=== PATIENT | male | born 1970 | race Caucasian/White ===

== ENCOUNTER 2024-05-21 20:09 | Emergency (ER) | payer BC ==
[2024-05-21 20:24] VITALS: RESP 18
--- NOTE | 2024-05-21 20:49 | ED ---
Fall HPI - General Chief Complaint: Fall Stated Complaint: Fall-Rib Injury Time Seen by Provider: 05/21/24 20:18 Source: patient, RN notes reviewed Mode of arrival: ambulatory - History of Present Illness Initial Comments: This is a 53-year-old male complaining of right rib pain following a trip and fall onto the edge of a kitchen counter x 5 days ago. Patient states he fell b ackwards, striking his right ribs into the counter with subsequent pain (/10) that worsens with inhalation. Patient denies other injuries, striking head, headache, neck pain, dyspnea, hemoptysis. MD Complaint: fall Onset/Timin -: days(s) Fall From: standing Fall Witnessed: yes, by family Place Fall Occurred: home Loss of Consciousness: none Prolonged Down Time?: no Symptoms Prior to Fall: none Location: back Severity scale (1-10): 8 Quality: sharp Context: tripped/slipped Associated Symptoms: denies - Related Data Allergies Allergy/AdvReac Type Severity Reaction Status Date / Time No Known Allergies Allergy Verified 05/21/24 20:18 Review of Systems ROS Statement: Those systems with pertinent positive or pertinent negative responses have been documented in the HPI. ROS Other: All systems not noted in ROS Statement are negative. Past Medical History Past Medical History: No Reported History History of Any Multi-Drug Resistant Organisms: None Reported Past Surgical History: Joint Replacement, Orthopedic Surgery Additional Past Surgical History / Comment(s): Bilat shoulders, R knee Past Psychological History: No Psychological Hx Reported Smoking Status: Never smoker Past Alcohol Use History: Rare Past Drug Use History: None Reported General Exam Limitations: no limitations General appearance: alert, in no apparent distress Head exam: Present: atraumatic, normocephalic, normal inspection Eye exam: Present: normal appearance, PERRL, EOMI. Absent: scleral icterus, conjunctival injection, periorbital swelling ENT exam: Present: normal exam, mucous membranes moist Neck exam: Present: normal inspection. Absent: tenderness, meningismus, lymphadenopathy Respiratory exam: Present: normal lung sounds bilaterally, chest wall tenderness (Positive crepitus and tenderness of right dorsal 10th and 11th ribs without overlying ecchymosis). Absent: respiratory distress, wheezes, rales, rhonchi, stridor, accessory muscle use, decreased breath sounds, prolonged expiratory Cardiovascular Exam: Present: regular rate, normal rhythm, normal heart sounds. Absent: systolic murmur, diastolic murmur, rubs, gallop, clicks GI/Abdominal exam: Present: soft, normal bowel sounds. Absent: distended, tenderness, guarding, rebound, rigid Extremities exam: Present: normal inspection, full ROM, normal capillary refill. Absent: tenderness, pedal edema, joint swelling, calf tenderness Back exam: Present: normal inspection Neurological exam: Present: alert, oriented X3, CN II-XII intact Psychiatric exam: Present: normal affect, normal mood Skin exam: Present: warm, dry, intact, normal color. Absent: rash Course Vital Signs 05/21/24 05/21/24 20:19 22:21 Temperature 98.7 F 98.2 F Pulse Rate 51 L 62 Respiratory 18 18 Rate Blood Pressure 191/117 174/97 O2 Sat by Pulse 98 Oximetry Medical Decision Making - Medical Decision Making Was pt. sent in by a medical professional or institution (, PA, OTOLARYNGOLOGY TEACHER, urgent care, hospital, or care home...) When possible be specific @ -No Did you speak to anyone other than the patient for history (EMS, parent, family, police, friend...)? What history was obtained from this source @ -No Did you review nursing and triage notes (agree or disagree)? Why? @ -I reviewed and agree with nursing and triage notes Were old charts reviewed (outside hosp., previous admission, EMS record, old EKG, old radiological studies, urgent care reports/EKG's, care home records)? Report findings @ -No old charts were reviewed Differential Diagnosis (chest pain, altered mental status, abdominal pain women, abdominal pain men, vaginal bleeding, weakness, fever, dyspnea, syncope, headache, dizziness, GI bleed, back pain, seizure, CVA, palpatations, mental health, musculoskeletal)? @ -Differential Musculoskeletal Muscular strain, contusion, ligament sprain, fracture, arthritis, septic arthritis, bursitis, cellulitis, muscle spasm, nerve compression, DVT, arterial occlusion, herpes zoster, electrolyte abnormality, tumor.... This is not meant to be in all inclusive list EKG interpreted by me (3pts min.). @ -Not done X-rays interpreted by me (1pt min.). @ -Right rib x-ray shows mildly displaced posterior right 10th and 11th rib fractures with trace right pleural effusion and no evidence of pneumothorax or subcutaneous emphysema. CT interpreted by me (1pt min.). @ -None done U/S interpreted by me (1pt. min.). @ -None done What testing was considered but not performed or refused? (CT, X-rays, U/S, labs)? Why? @ -None What meds were considered but not given or refused? Why? @ -None Did you discuss the management of the patient with other professionals (professionals i.e. DrMily, PA, OTOLARYNGOLOGY TEACHER, lab, RT, psych nurse, renal social worker, hat finisher, teacher, customs and immigration officer, porter sample case)? Give summary @ -No Was smoking cessation discussed for >3mins.? @ -No Was critical care preformed (if so, how long)? @ -No Were there social determinants of health that impacted care today? How? (Homelessness, low income, unemployed, alcoholism, drug addiction, transportation, low edu. Level, literacy, decrease access to med. care, shelter, rehab)? @ -No Was there de-escalation of care discussed even if they declined (Discuss DNR or withdrawal of care, Hospice)? DNR status @ -No What co-morbidities impacted this encounter? (DM, HTN, Smoking, COPD, CAD, Cancer, CVA, ARF, Chemo, Hep., AIDS, mental health diagnosis, sleep apnea, morbid obesity)? @ -None Was patient admitted / discharged? Hospital course, mention meds given and route, prescriptions, significant lab abnormalities, going to OR and other pertinent info. @ -Right rib x-ray shows mildly displaced posterior right 10th and 11th rib fractures with trace right pleural effusion and no evidence of pneumothorax or subcutaneous emphysema. Patient provided IM Dilaudid for pain with some relief noted by patient. Patient provided incentive spirometer and discharged with T3 starter pack. Advised follow-up with PCP in the next 24-48 [address] patient with Dr. Ruelas. Undiagnosed new problem with uncertain prognosis? @ -No Drug Therapy requiring intensive monitoring for toxicity (Heparin, Nitro, Insulin, Cardizem)? @ -No Were any procedures done? @ -No Diagnosis/symptom? @ -Rib fracture Acute, or Chronic, or Acute on Chronic? @ -Acute Uncomplicated (without systemic symptoms) or Complicated (systemic symptoms)? @ -Uncomplicated Side effects of treatment? @ -No Exacerbation, Progression, or Severe Exacerbation? @ -No Poses a threat to life or bodily function? How? (Chest pain, [place], [place], pneumonia, PE, COPD, DKA, ARF, appy, cholecystitis, CVA, Diverticulitis, Homicidal, Suicidal, threat to staff... and all critical care pts) @ -No Disposition Clinical Impression: Fall, Fracture of rib of right side Disposition: HOME SELF-CARE Condition: Good Instructions (If sedation given, give patient instructions): Rib Fracture (ED) Additional Instructions: Continue regular use of incentive spirometer. Follow-up with PCP in the next 24-48 hours. Is patient prescribed a controlled substance at d/c from ED?: No Referrals: None,Stated [Primary Care Provider] - 1-2 days Karen Salazar MD [Doctor of Osteopathic Medicine] - 1-2 days Time of Disposition: 22:09
[2024-05-21] MEDS: HYDROmorphone 1 MG/ML 1 ML SYRINGE IM STA (21:03)
[2024-05-21] MEDS: ACET/COD 300 MG/30 MG STARTER PACK 6 TAB BTL PO STA (21:04)
--- NOTE | 2024-05-21 21:26 | XR ---
EXAMINATION TYPE: XR ribs RT w pa chest xray DATE OF EXAM: 05/21/2024 9:12 PM INDICATION: Patient age:Male; 53 years old; Reason for study: Dorsal lower rib ecchymosis and crepitus; PHH. pain COMPARISON: None TECHNIQUE: Frontal and oblique views of the right ribs with PA chest radiograph. FINDINGS: Acute mildly displaced posterior right 10th and 11th rib fractures. The remaining osseous s tructures appear intact. Trace right pleural effusion. No focal consolidation or pneumothorax. Elevat ion the right hemidiaphragm. No subcutaneous emphysema identified. The cardiac silhouette is prominen t in size. IMPRESSION: 1. Acute mildly displaced posterior right 10th and 11th rib fractures. 2. Trace right pleural effusion. 3. No discrete pneumothorax or subcutaneous emphysema. [facility], , 05/21/2024 9:23 PM
[2024-05-21 22:22] VITALS: BP 174/97; PULSE 62; TEMP 98.2
== END 2024-05-21 22:22 | disposition home or self-care (01) ==
LOC: EC 20:09
DX: S22.31XA Fracture of one rib, right side, initial encounter for closed fracture (principal); W01.198A Fall on same level from slipping, tripping and stumbling with subsequent striking against other object, initial encounter; Y92.040 Kitchen in boarding-house as the place of occurrence of the external cause
CPT/HCPCS: 71101; 99283; 96372; J1171